=== PATIENT | female | born 1985 | race African-American/Black ===

== ENCOUNTER 2023-02-13 21:38 | Emergency (ER) | payer MEDICAID ==
[~2023-02-13] VITALS: Ht 154.9 cm; Wt 58.5 kg
[2023-02-13 22:00] VITALS: BP 128/74; PULSE 74; RESP 17; TEMP 97.6; O2SAT 100
[2023-02-14 02:16] VITALS: BP 118/79; PULSE 68; RESP 16; TEMP 97.7; O2SAT 100
== END 2023-02-14 02:12 | disposition home or self-care (01) ==
LOC: MED 21:38
DX: R00.2 Palpitations (principal); R55 Syncope and collapse; Z88.8 Allergy status to other drugs, medicaments and biological substances; Z91.040 Latex allergy status
CPT/HCPCS: 71045; 93005; 99283

== ENCOUNTER 2023-02-20 23:45 | Emergency (ER) | payer MEDICAID ==
[~2023-02-20] VITALS: Ht 165.1 cm; Wt 54.4 kg
[2023-02-21 00:01] VITALS: BP 115/70; PULSE 101; RESP 18; TEMP 97.4; O2SAT 99
[2023-02-21] MEDS ORDERED: TRIA0.029 TP (00:58)
[2023-02-21 01:02] VITALS: BP 115/70; PULSE 101; RESP 18; TEMP 97.4; O2SAT 99
== END 2023-02-21 01:02 | disposition home or self-care (01) ==
LOC: MED 23:45
DX: L25.9 Unspecified contact dermatitis, unspecified cause (principal); Z91.040 Latex allergy status; Z79.899 Other long term (current) drug therapy
CPT/HCPCS: 99283